=== PATIENT | female | born 1990 | race Caucasian/White ===

== ENCOUNTER 2024-04-24 21:09 | Emergency (ER) | payer MEDICAID, SELFPAY ==
[2024-04-24 21:25] VITALS: BP 111/72; PULSE 98; RESP 16; TEMP 36.7; O2SAT 99
--- NOTE | 2024-04-25 00:43 | PC.NURSE ---
0030: Patient called from the waiting room with no answer.
== END 2024-04-25 00:44 | disposition left against medical advice (07) ==
PROVIDERS: Emergency Provider Family Medicine; PCP Nurse Practitioner Family
DX: Z53.21 Procedure and treatment not carried out due to patient leaving prior to being seen by health care provider (principal)

== ENCOUNTER 2024-05-22 14:43 | Emergency (ER) | payer MEDICAID, SELFPAY ==
[2024-05-22 14:48] VITALS: BP 133/95; PULSE 105; RESP 16; TEMP 36.7; O2SAT 98; BMI 17.9
[2024-05-22 15:05] LABS: Basophils # 0.1 10^3/uL (0.0-0.1); Basophils % 0.5 %; Eosinophils % 0.4 %; Lymphocytes # 1.8 10^3/uL (0.8-4.8); Lymphocytes % 18.1 %; Mean Corpuscular Hemoglobin 31.7 pg (27-33); Mean Corpuscular Volume 93.5 fl (85-98); Mean Platelet Volume 10.2 fL (7.4-10.4); Monocytes # 0.4 10^3/uL (0.2-0.9); Monocytes % 4.3 %; Neutrophils # 7.72 10^3/uL (1.8-7.7); Neutrophils % 76.4 %; Nucleated Red Blood Cells % 0 %; Platelet Count 218 10^3/cmm (157-399); Red Cell Distribution Width 13.7 % (12.1-15.1)
[2024-05-22 15:17] LABS: HCG, Serum Qual Negative (Negative)
[2024-05-22 15:25] LABS: Alanine Aminotransferase < 5 U/L (0-33); Albumin Level 4.2 g/dL (3.5-5.2); Alkaline Phosphatase 79 U/L (35-105); Anion Gap 15.2 (5-19); Aspartate Amino Transferase 12 U/L (0-32); Blood Urea Nitrogen 7 mg/dL (6-20); Calcium 9.1 mg/dL (8.5-10.5); Carbon Dioxide 24 mmol/L (22-29); Chloride 98 mmol/L (98-107); Creatinine Clr Calc Pharmacy 120.8645; Globulin 2.6 g/dL (1.3-4.6); Glomerular Filtration Rate 142.1 mL/min (90-130); Glucose 126 mg/dL (65-115); Lipase 9 U/L (13-60); Osmolality Calculated 278 mOsm/kg (285-295); Potassium 3.2 mmol/L (3.5-5.1); Sodium 134 mmol/L (136-145); Total Bilirubin 0.3 mg/dL (0.15-1.2); Total Protein 6.8 g/dL (6.6-8.7)
--- NOTE | 2024-05-22 17:03 | CTR_ITS ---
PROCEDURE INFORMATION: Exam: CT Abdomen And Pelvis With Contrast Exam date and time: 05/22/2024 5:19 PM Age: 33 years old Clinical indication: Abdominal pain; Generalized; Prior surgery; Surgery date: 6+ months; Surgery type: Csection; Additional info: R flank/ruq abdominal pain TECHNIQUE: Imaging protocol: Computed tomography of the abdomen and pelvis with contrast. Axial, coronal and sagittal reformatted images were created and reviewed. Radiation optimization: All CT scans at this facility use at least one of these dose optimization techniques: automated exposure control; mA and/or kV adjustment per patient size (includes targeted exams where dose is matched to clinical indication); or iterative reconstruction. Contrast material: OMNIPAQUE 350; Contrast volume: 100 ml; Contrast route: INTRAVENOUS (IV); COMPARISON: No relevant prior studies available. RADIATION DOSE METRICS: Total DLP (mGy-cm): 306.33 FINDINGS: Liver: Unremarkable. Gallbladder and biliary ducts: No radiodense gallstones. No biliary ductal dilatation. Pancreas: Unremarkable. Spleen: Unremarkable. Adrenal glands: Normal. No mass. Kidneys and ureters: 7 mm low-density right renal lesion, too small to characterize (no follow-up is indicated based on the imaging appearance). No radiodense calculi. No hydronephrosis. Stomach and bowel: Moderate amount of retained stool in the colon. No obstruction. No bowel wall thickening. No pneumatosis. Appendix: Normal. Intraperitoneal space: Trace nonspecific free pelvic fluid, likely physiologic. No organized fluid collection. No free air. Vasculature: Unremarkable. No aneurysm. Lymph nodes: No pathologically enlarged lymph nodes. Urinary bladder: Unremarkable as visualized. Reproductive: Bilateral adnexal cystic lesions, measuring up to 2.5 cm on the left. Bones/joints: No acute osseous abnormality. Mild degenerative changes. Chronic deformity along the L4 anterior superior endplate. Soft tissues: Unremarkable. CT/CT abdomen pelvis w con* [id number] IMPRESSION: 1. Moderate amount of retained stool in the colon. 2. Bilateral adnexal cystic lesions, measuring up to 2.5 cm on the left. If clinically indicated, pelvic ultrasound may be obtained for further evaluation. 3. Additional findings, as above. COMMENTS: Consistent with the [employer]'s Incidental Findings Committee white paper (J Am Aicha Radiol 2018): Any incidental renal lesion less than 1 cm or classified as too small to characterize, or any incidental cystic renal lesion characterized as simple-appearing, is likely benign. No follow-up imaging is recommended for these lesions per consensus recommendations based on imaging criteria.
--- NOTE | 2024-05-22 17:03 | W.ED.ABDPA2 ---
HPI - Abdominal Pain General: Chief Complaint: Abdominal Pain Stated Complaint: sent from [facility], enlarge liver or kidney Time Seen by Provider: 05/22/24 16:56 Source: patient Mode of arrival: ambulatory Limitations: no limitations History of Present Illness: Patient is a 33-year-old female presents to ED today with complaint of pain throughout the right side of her abdomen that has been present over the past month. She states symptoms, at first, were intermittent but over the past several days they have been more constant and more severe enough today to seek medical evaluation. She was reportedly seen at a clinic and referred to the emergency department. Apart from her pain, she is having absolutely no other symptoms. She feels like her pain is worse with movement, coughing, sneezing. She is not having any dysuria, frequency, urgency, cloudy or odorous urine. She is not having any nausea, vomiting, changes in bowel movements. No fevers. No shortness of breath or cough. She arrives in no acute distress. MD elicited complaint: abdominal pain Pertinent past history: none Onset (ago): week(s) Pain Consistency: constant and intermittent Location: RUQ and R flank Severity: severe Radiation: none Migration to: no migration Exacerbating factors: movement Relieving factors: nothing Associated Symptoms: Reports no associated symptoms; Denies chills, diarrhea, dysuria, fever(s), heartburn, nausea, syncope and vomiting Related Data Home Medications Medication Instructions Recorded Confirmed No Known Home Medications 05/22/24 05/22/24 Allergies Allergy/AdvReac Type Severity Reaction Status Date / Time amoxicillin Allergy Mild hives Uncoded 05/22/24 11:06 penicillin Allergy Mild hive Uncoded 05/22/24 11:06 Review of Systems Const: Denies: fever(s), chills, body aches, fatigue or malaise Eyes: Denies: change in vision or blurry vision Card: Denies: chest pain, palpitations, irregular heart rhythm, lightheadedness, syncope or dyspnea on exertion Resp: Denies: dyspnea, productive cough or pain on inspiration GI: Reports: abdominal pain; Denies: nausea, vomiting, heartburn or diarrhea : Reports: flank pain; Denies: difficulty voiding, dysuria, urinary frequency, urinary urgency or urinary hesitancy Musc: Reports: back pain (near R flank); Denies: neck pain, extremity pain, extremity swelling or joint pain Skin/Breast: Denies: rash Neuro: Denies: headache(s), numbness in extremities, weakness in extremities, sensory changes or dizziness PFSH ED PFSH: Medical History Bipolar 1 disorder ADHD Surgical History Hx of section Family History Other Hypertension Multiple sclerosis Stroke Denies family history of Clotting disorder Anesthesia complication Bleeding disorder Social History Smoking and tobacco/nicotine status: current every day tobacco/nicotine user (trying to quit) cigarettes Packs smoked per day: 0.5 Alcohol intake: never Substance/Drug Use: current Substance/Drug use frequency: few times a week Household members: spouse and children Marital status: Number of children: 2 Current occupation: stay at home Physical Exam Const: COMMON NORMALS: no acute distress, patient oriented x3, no limitations, healthy appearing, alert and well nourished GENERAL APPEARANCE: cooperative NUTRITIONAL APPEARANCE: thin ORIENTATION/CONSCIOUSNESS: Yes awake, Yes oriented to person, Yes oriented to place and Yes oriented to time Eye: COMMON NORMALS: no scleral icterus Neck/C-Spine: COMMON NORMALS: no lymphadenopathy Chest: COMMONS NORMALS: normal inspection of the chest and normal palpation of entire chest wall Resp: COMMON NORMALS: normal respiratory effort and clear to auscultation bilaterally AUSCULTATION: clear to auscultation bilaterally Cardio: COMMON NORMALS: regular rate and regular rhythm RATE: regular rate RHYTHM: regular rhythm GI: COMMON NORMALS: Normal to inspection, nondistended, normoactive bowel sounds present, Soft to palpation, No hepatosplenomegaly present and no masses INSPECTION: Yes normal to inspection AUSCULTATION: Yes normoactive bowel sounds PALPATION: Yes Soft to palpation, Yes Tenderness to palpation present (GI) (RUQ), Yes Guarding due to palpation present (GI) and Yes No hepatosplenomegaly present : BLADDER/KIDNEY EXAM: Yes CVA tenderness on the right Back/Pelvis: COMMON NORMALS: thoracic and lumbar spine normal to inspection and no thoracic nor lumbar tenderness GENERAL BACK: Yes CVA tenderness Extremity: GENERAL: Yes normal exam except as noted Neuro: COMMON NORMALS: patient oriented x3, moves all extremities, no focal motor deficits, no sensory deficits noted and gait normal SENSORIUM/ORIENTATION: Yes alert, Yes oriented to person, Yes oriented to place and Yes oriented to time Skin: COMMON NORMALS: no rashes or lesions noted GENERAL SKIN EXAM: no rashes or lesions noted Course Vital Signs: Vital signs: Vital Signs Temperature 98.0 F 05/22/24 14:48 Pulse Rate 105 H 05/22/24 14:48 Respiratory Rate 14 05/22/24 17:42 Blood Pressure 133/95 05/22/24 14:48 Pulse Oximetry 97 05/22/24 17:42 Oxygen Delivery Me thod Room Air 05/22/24 14:48 MDM - Abdominal Pain Medical Decision Making Patient appears in no acute distress. Her vital signs are stable. Blood work showing a normal white count. Her chemistry overall is fairly unremarkable. Her UA with large amount of blood most likely contamination as she started her menstrual cycle yesterday. She has no UTI symptoms. Lab will attempt culture. CT scan showing moderate retained colonic stool and some bilateral adnexal cystic lesions. Her kidneys and bladder appeared normal on CT imaging. At this time I would recommend she follow-up with her primary care provider next week. Return to ED precautions given. Medical Records I reviewed the patient's medical records. Lab Data I reviewed the patient's lab results. 05/22/24 14:58 05/22/24 14:58 Labs/Radiology: Radiology Impressions Abdomen/Pelvis CT 05/22/24 17:03 IMPRESSION: 1. Moderate amount of retained stool in the colon. 2. Bilateral adnexal cystic lesions, measuring up to 2.5 cm on the left. If clinically indicated, pelvic ultrasound may be obtained for further evaluation. 3. Additional findings, as above. COMMENTS: Consistent with the [employer]'s Incidental Findings Committee white paper (J Am Aicha Radiol 2018): Any incidental renal lesion less than 1 cm or classified as too small to characterize, or any incidental cystic renal lesion characterized as simple-appearing, is likely benign. No follow-up imaging is recommended for these lesions per consensus recommendations based on imaging criteria. Laboratory Results WBC 10.10 10^3/uL (3.29-11.43) 05/22/24 14:58 RBC 4.60 10^6/uL (3.85-5.65) 05/22/24 14:58 Hgb 14.60 g/dL (11.27-16.99) 05/22/24 14:58 Hct 43.0 % (36-47) 05/22/24 14:58 MCV 93.5 fl (85-98) 05/22/24 14:58 MCH 31.7 pg (27-33) 05/22/24 14:58 MCHC 34.0 g/dL (30-55) 05/22/24 14:58 RDW 13.7 % (12.1-15.1) 05/22/24 14:58 Plt Count 218 10^3/cmm (157-399) 05/22/24 14:58 MPV 10.2 fL (7.4-10.4) 05/22/24 14:58 Neut % (Auto) 76.4 % 05/22/24 14:58 Lymph % (Auto) 18.1 % 05/22/24 14:58 Mchenry % (Auto) 4.3 % 05/22/24 14:58 Eos % (Auto) 0.4 % 05/22/24 14:58 Baso % (Auto) 0.5 % 05/22/24 14:58 Neut # (Auto) 7.72 10^3/uL (1.8-7.7) H 05/22/24 14:58 Lymph # (Auto) 1.8 10^3/uL (0.8-4.8) 05/22/24 14:58 Mchenry # (Auto) 0.4 10^3/uL (0.2-0.9) 05/22/24 14:58 Eos # (Auto) 0.0 10^3/uL (0.0-0.8) 05/22/24 14:58 Baso # (Auto) 0.1 10^3/uL (0.0-0.1) 05/22/24 14:58 Nucleated RBC % (auto) 0 % 05/22/24 14:58 Nucleated RBCs # 0.0 /100WBC 05/22/24 14:58 Sodium 134 mmol/L (136-145) L 05/22/24 14:58 Potassium 3.2 mmol/L (3.5-5.1) L 05/22/24 14:58 Chloride 98 mmol/L (98-107) 05/22/24 14:58 Carbon Dioxide 24 mmol/L (22-29) 05/22/24 14:58 Anion Gap 15.2 (5-19) 05/22/24 14:58 BUN 7 mg/dL (6-20) 05/22/24 14:58 Creatinine 0.5 mg/dL (0.5-0.9) 05/22/24 14:58 GFR Calculation 142.1 mL/min (90-130) H 05/22/24 14:58 Glucose 126 mg/dL (65-115) H 05/22/24 14:58 Calculated Osmolality 278 mOsm/kg (285-295) L 05/22/24 14:58 Calcium 9.1 mg/dL (8.5-10.5) 05/22/24 14:58 Total Bilirubin 0.3 mg/dL (0.15-1.2) 05/22/24 14:58 AST 12 U/L (0-32) 05/22/24 14:58 ALT < 5 U/L (0-33) 05/22/24 14:58 Alkaline Phosphatase 79 U/L (35-105) 05/22/24 14:58 Total Protein 6.8 g/dL (6.6-8.7) 05/22/24 14:58 Albumin 4.2 g/dL (3.5-5.2) 05/22/24 14:58 Globulin 2.6 g/dL (1.3-4.6) 05/22/24 14:58 Lipase 9 U/L (13-60) L 05/22/24 14:58 HCG, Qual Negative (Negative) 05/22/24 14:58 Urine Color Red (Yellow) A 05/22/24 17:12 Urine Appearance Cloudy (CLEAR) A 05/22/24 17:12 Urine pH 6.5 (5-7) 05/22/24 17:12 Ur Specific [place] 1.014 (1.005-1.030) 05/22/24 17:12 Urine Protein 2+ (Negative) A 05/22/24 17:12 Urine Glucose (UA) Negative (Normal) 05/22/24 17:12 Urine Ketones Negative (Negative) 05/22/24 17:12 Urine Blood 3+ (Negative) A 05/22/24 17:12 Urine Nitrate Negative (Negative) 05/22/24 17:12 Urine Bilirubin Negative (Negative) 05/22/24 17:12 Urine Urobilinogen 1.0 mg/dL (Negative) 05/22/24 17:12 Ur Leukocyte Esterase 1+ (Negative) A 05/22/24 17:12 Urine RBC >100 /hpf (0-2) H 05/22/24 17:12 Urine WBC 11-20 /hpf (0-5) H 05/22/24 17:12 Ur Squamous Epith Cells 0-5 /hpf (0-5) 05/22/24 17:12 Amorphous Sediment Not Reportable 05/22/24 17:12 Urine Bacteria None seen /hpf (NONE) 05/22/24 17:12 Hyaline Casts 0.40 /lpf 05/22/24 17:12 All radiology interpretation(s) finalized by discharge Discharge Plan Discharge Patient Disposition: Home Clinical Impression: Adnexal cyst Constipation Qualifiers: Constipation type: unspecified constipation type Qualified Code(s): K59.00 - Constipation, unspecified Abdominal pain Qualifiers: Abdominal location: right upper quadrant Qualified Code(s): R10.11 - Right upper quadrant pain Condition: Stable Prescriptions: No Action No Known Home Medications Discharge Orders: Discharge ED (Routine); Ordered 05/22/24 Ordered By: Kelsi Lorenzo Referrals: Elizabeth Benz FNP-C [Primary Care Provider] - Patient Instructions: Abdominal Pain (ED) Activity Restrictions/Additional Instructions: As we discussed, I would like you to follow-up with primary care next week. I would recommend you begin taking some MiraLAX and stool softeners to see if this helps with your abdominal pain. You need to return to the emergency department for worsening pain, burning with urination, cloudy or odorous urine, urinary frequency or hesitancy, or any other concerns you may have. Coding Level of Care Code ED Supplier Diversity Director for Jemma Patel
[2024-05-22] MEDS: iohexol 350 mg/mL 500 mL Btl (per mL) IV (17:22)
[2024-05-22 17:29] LABS: Bilirubin Urine Negative (Negative); Blood Urine 3+ (Negative); Glucose Urine UA Negative (Normal); Ketones Urine Negative (Negative); Leukocyte Esterase Urine 1+ (Negative); Nitrate Urine Negative (Negative); Protein Urine 2+ (Negative); Specific Gravity, Urine 1.014 (1.005-1.030); Urine Appearance Cloudy (CLEAR); pH Urine 6.5 (5-7)
[2024-05-22 17:31] LABS: Add Urine Microscopic? YES; Bacteria Urine None Seen /hpf; RBC Urine >100 /hpf (0-2); Squamous Epithelial Cell Urine 0-5 /hpf (0-5)
[2024-05-22 17:36] LABS: Add Urine Culture? Yes; UA Slide Review UA Slide Review Perf; Urine Color Red (Yellow)
[2024-05-22] MEDS: ondansetron 2 mg/ML SDV 2 mL 4 MG IVP (17:39)
[2024-05-22 17:42] VITALS: RESP 14; O2SAT 97
[2024-05-22] MEDS: morphine 4 mg/mL SDV 1 mL IVP (17:42)
[2024-05-22 17:50] VITALS: BP 112/76; PULSE 70; RESP 16; O2SAT 97
[2024-05-22 18:10] VITALS: PULSE 69; RESP 16; O2SAT 98
[2024-05-22 18:26] VITALS: BP 112/67; PULSE 76; O2SAT 98
== END 2024-05-22 18:27 | disposition home or self-care (01) ==
PROVIDERS: Emergency Provider Physician Assistant; PCP Nurse Practitioner Family
DX: N83.292 Other ovarian cyst, left side (principal); K59.00 Constipation, unspecified; R10.11 Right upper quadrant pain; F17.210 Nicotine dependence, cigarettes, uncomplicated
CPT/HCPCS: 36415; 74177; 80053; 81001; 83690; 84703; 85025; 87086; 96374; 96375; 99285; J2270; J2405